=== PATIENT | female | born 1985 | race Caucasian/White ===

== ENCOUNTER 2017-10-17 18:17 | Emergency (ER) | payer BC ==
[2017-10-17] MEDS ORDERED: Cephalexin 500 MG Cap ONE (19:00)
--- NOTE | 2017-10-17 19:18 | EDM.PDOC ---
ED HPI GENERAL MEDICAL PROBLEM - General Chief Complaint: Laceration Stated Complaint: laceration Time Seen by Provider: 10/17/17 18:20 Source of Information: Reports: Patient, Family History Limitations: Reports: No Limitations - History of Present Illness INITIAL COMMENTS - FREE TEXT/NARRATIVE: Patient is a 32 year old woman who cut the top of her right index finger on a stove cover on her ice fishing house. It is painful but she has normal function and sensation. She does need a tetanus shot. Onset: Today Onset Date: 10/17/17 Onset Time: 17:20 Duration: Hour(s): (1), Constant Location: Reports: Upper Extremity, Right (Has a 2 cm cut on the top and side of her right index finger on the proximal phalange.) Quality: Reports: Sharp Severity: Mild Improves with: Reports: None Worsens with: Reports: None Context: Reports: Other (Cut top of finger on stove cover.) Associated Symptoms: Reports: No Other Symptoms ED ROS GENERAL - Review of Systems Review Of Systems: ROS reveals no pertinent complaints other than HPI. ED EXAM, SKIN/RASH Exam: See Below Exam Limited By: No Limitations General Appearance: Alert, WD/WN, No Apparent Distress Eye Exam: Bilateral Eye: EOMI, PERRL Ears: Normal External Exam, Normal Canal, Hearing Grossly Normal, Normal TMs Nose: Normal Inspection, Normal Mucosa, No Blood Throat/Mouth: Normal Inspection, Normal Lips, Normal Teeth, Normal Gums, Normal Oropharynx, Normal Voice, No Airway Compromise Head: Atraumatic, Normocephalic Neck: Normal Inspection, Supple, Non-Tender, Full Range of Motion Respiratory/Chest: No Respiratory Distress, Lungs Clear, Normal Breath Sounds, No Accessory Muscle Use, Chest Non-Tender Cardiovascular: Normal Peripheral Pulses, Regular Rate, Rhythm, No Edema, No Gallop, No JVD, No Murmur, No Rub GI/Abdominal: Normal Bowel Sounds, Soft, Non-Tender, No Organomegaly, No Distention, No Abnormal Bruit, No Mass Extremities: Other (2 cm superficial laceration on top of right index finger.) Neurological: Alert, Oriented, CN II-XII Intact, Normal Cognition, Normal Gait, Normal Reflexes, No Motor/Sensory Deficits Psychiatric: Normal Affect, Normal Mood Skin: Wound/Incision (2 cm laceration on top of right index finger's proximal phalange.) Lymphatic: No Adenopathy ED SKIN PROCEDURES - Laceration/Wound Repair Right Upper Proximal Dorsal Finger Lac/Wound length In cm: 2 Appearance: Superficial, Linear, Clean Distal NVT: Neuro & Vascular Intact, No Tendon Injury Anesthetic Type: Local Local Anesthesia - Lidocaine (Xylocaine): 1% Plain Local Anesthetic Volume: 2cc Skin Prep: Chlorhexidine (Hibiciens), Saline Exploration/Debridement/Repair: Wound Explored, In a Bloodless Field, Explored to Base, No Foreign Material Found Suture Size: 4-0 # of Sutures: 5 Suture Type: Nylon, Interrupted, Simple Course - Vital Signs Text/Narrative:: Uneventful ED course. She was given a Tdap and was given Cephalexin 500 mg po bid x 10 days to prevent infection. Wound care was discussed and the wound was sterilely dressed. She will return to her PCP in 9 days for suture removal. Departure - Departure Time of Disposition: 19:25 Disposition: Home, Self-Care 01 Condition: Good Clinical Impression: Laceration of finger Qualifiers: Encounter type: initial encounter Finger: index finger Damage to nail status: without damage Foreign body presence: without foreign body Laterality: right Qualified Code(s): S61.210A - Laceration without foreign body of right index finger without damage to nail, initial encounter - Discharge Information
[2017-10-17] MEDS ORDERED: Diphtheria,Pertussis(Acell),Tetanus Vaccine 0.5 ML SDV inactive IM ONE (19:30)
== END 2017-10-17 19:30 | disposition home or self-care (01) ==
LOC: LB.ED 18:17
DX: S61.210A Laceration without foreign body of right index finger without damage to nail, initial encounter (principal); Z23 Encounter for immunization; W45.8XXA Other foreign body or object entering through skin, initial encounter
CPT/HCPCS: 12001; 90471; 90715; 99282-25; A9270-GY